=== PATIENT | male | born 1975 | race Caucasian/White ===

== ENCOUNTER 2024-09-25 17:18 | Emergency (ER) | payer OTHER ==
[~2024-09-25] VITALS: Ht 172.7 cm; Wt 69.0 kg
[2024-09-25 17:30] VITALS: O2SAT 99
[2024-09-25] MEDS: CYCLOBENZAPRINE 10MG TABLET PO ONE (19:33)
[2024-09-25] MEDS: KETOROLAC 15MG/ML VIAL IM ONE (19:33)
[2024-09-25] MEDS ORDERED: NAPR-681 MT (20:05)
[2024-09-25] MEDS ORDERED: CYCL10TA21 MT (20:05)
[2024-09-25 20:14] VITALS: BP 118/71; PULSE 63; RESP 18; TEMP 36.66960; O2SAT 99
== END 2024-09-25 20:17 | disposition home or self-care (01) ==
LOC: ER 17:18
DX: G89.29 Other chronic pain (principal); M54.50 Low back pain, unspecified; F19.90 Other psychoactive substance use, unspecified, uncomplicated
CPT/HCPCS: 99283; 96372; J1885

== ENCOUNTER 2024-10-08 16:17 | Emergency (ER) | payer OTHER ==
[~2024-10-08] VITALS: Ht 172.7 cm; Wt 68.0 kg
[~2024-10-08 16:17] MED LIST: CYCL10TA21 MT; NAPR-681 MT
[2024-10-08 16:22] VITALS: TEMP 98.6; O2SAT 99
[2024-10-08 16:26] VITALS: O2SAT 100
[2024-10-08 18:15] VITALS: BP 128/75; PULSE 80; RESP 18
[2024-10-08] MEDS: KETOROLAC 30MG/ML VIAL IM STA (18:15)
[2024-10-08] MEDS: METHYLPREDNISOLONE SOD SUCC 125MG/2ML (ACT-O-VIAL) IM STA (18:15)
[2024-10-08] MEDS: CYCLOBENZAPRINE 10MG TABLET PO ONE (18:15)
[2024-10-08] MEDS ORDERED: NAPR-681 MT (18:46)
[2024-10-08] MEDS ORDERED: GABA-1180 MT (18:46)
== END 2024-10-08 20:27 | disposition home or self-care (01) ==
LOC: ER 16:17
DX: M47.817 Spondylosis without myelopathy or radiculopathy, lumbosacral region (principal); G89.29 Other chronic pain
CPT/HCPCS: 99284; 72100; 96372; J1885; J2919